=== PATIENT | female | born 1960 | race Caucasian/White ===

== ENCOUNTER 2019-07-16 14:34 | Emergency (ER) | payer OTHER ==
[2019-07-16 15:06] VITALS: BP 129/78
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
== END 2019-07-16 16:40 | disposition home or self-care (01) ==
LOC: UCEAST 14:34
DX: S20.01XA Contusion of right breast, initial encounter (principal); S80.11XA Contusion of right lower leg, initial encounter; S01.81XA Laceration without foreign body of other part of head, initial encounter; S80.01XA Contusion of right knee, initial encounter; M25.461 Effusion, right knee; R29.898 Other symptoms and signs involving the musculoskeletal system; J45.909 Unspecified asthma, uncomplicated; Z91.013 Allergy to seafood; Z88.2 Allergy status to sulfonamides; Z91.09 Other allergy status, other than to drugs and biological substances; V43.52XA Car driver injured in collision with other type car in traffic accident, initial encounter; Y92.9 Unspecified place or not applicable
CPT/HCPCS: 99201; G0463

== ENCOUNTER 2019-07-20 15:12 | Emergency (ER) | payer OTHER ==
[2019-07-20 15:22] VITALS: BP 136/80
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
[2019-07-20] MEDS ORDERED: Lidocaine 1% MPF ** 5 ML VIAL INJ ONE (16:02)
[2019-07-20] MEDS ORDERED: cefTRIAXone VIAL(*) 1,000 MG VIAL IM ONE (16:02)
== END 2019-07-20 16:20 | disposition home or self-care (01) ==
LOC: UCEAST 15:12
DX: S91.012A Laceration without foreign body, left ankle, initial encounter (principal); Z91.013 Allergy to seafood; Z91.09 Other allergy status, other than to drugs and biological substances; Z88.2 Allergy status to sulfonamides; V49.9XXA Car occupant (driver) (passenger) injured in unspecified traffic accident, initial encounter; Y92.9 Unspecified place or not applicable
CPT/HCPCS: 96372; 99212; G0463; J0696